=== PATIENT | female | born 1995 | race Caucasian/White ===

== ENCOUNTER 2018-04-16 09:01 | Inpatient (IN) | payer BC ==
[2018-04-16] MEDS ORDERED: Sodium Chloride 0.9% 10 ML Syringe FLUSH PRN (13:10)
[2018-04-16] MEDS ORDERED: Calcium Carbonate 500 MG Tab.Chew PO PRN (13:10)
[2018-04-16] MEDS ORDERED: Nalbuphine 20 MG/ML 1 ML Syringe IVPUSH PRN (13:10)
[2018-04-16] MEDS ORDERED: Lidocaine 1% 50 ML MDV INJECT ONE (13:10)
[2018-04-16] MEDS ORDERED: Ondansetron 4 MG/2 ML SDV IVPUSH PRN ×2 (13:10→13:22)
[2018-04-16] MEDS ORDERED: Oxytocin/Lactated Ringers 10 UNIT/1,000 ML BAG IV SCH ×2 (13:15→17:15)
[2018-04-16] MEDS ORDERED: Lactated Ringers 1,000 ML ONE (13:21)
[2018-04-16] MEDS ORDERED: ePHEDrine 50 MG/ML SDV IVPUSH PRN (13:22)
[2018-04-16] MEDS ORDERED: fentaNYL 100 MCG/2 ML SDV EPIDUR PRN (13:22)
[2018-04-16] MEDS ORDERED: diphenhydrAMINE 50 MG/ML SDV IVPUSH PRN (13:22)
--- NOTE | 2018-04-16 13:28 | PCM.PREANE ---
Preanesthetic Assessment - Procedure Proposed Procedure: CHARIS - Anesthesia/Transfusion/Family Hx Anesthesia History: Prior Anesthesia Without Reaction Family History of Anesthesia Reaction: No Transfusion History: No Prior Transfusion(s) - Review of Systems General: No Symptoms Pulmonary: No Symptoms Cardiovascular: No Symptoms Gastrointestinal: Other (GERD with ) Neurological: No Symptoms Other: Reports: None - Physical Assessment NPO Status Date: 04/16/18 NPO Status Time: 11:00 Pulse: 78 O2 Sat by Pulse Oximetry: 99 Respiratory Rate: 16 Blood Pressure: 115/74 Temperature: 36.3 C Height: 1.57 m Weight: 76.204 kg ASA Class: 2 Mental Status: Alert & Oriented x3 Airway Class: Mallampati = 1 Dentition: Reports: Normal Dentition Thyro-Mental Finger Breadths: 3 Mouth Opening Finger Breadths: 3 ROM/Head Extension: Full Lungs: Clear to Auscultation, Normal Respiratory Effort Cardiovascular: Regular Rate, Regular Rhythm - Allergies Allergies/Adverse Reactions: Allergies Allergy/AdvReac Type Severity Reaction Status Date / Time No Known Allergies Allergy Verified 02/11/15 23:41 - Blood Blood Available: No Product(s) Available: None - Anesthesia Plan Pre-Op Medication Ordered: None - Acknowledgements Anesthesia Type Planned: Epidural Pt an Appropriate Candidate for the Planned Anesthesia: Yes Alternatives and Risks of Anesthesia Discussed w Pt/Guardian: Yes Pt/Guardian Understands and Agrees with Anesthesia Plan: Yes PreAnesthesia Questionnaire - Past Health History Medical/Surgical History: Denies Medical/Surgical History - HOME MEDS Home Medications: Home Meds Ondansetron [Zofran ODT] 4 mg PO Q6H PRN #20 tab.dis 02/12/15 [Rx] oxyCODONE HCl/Acetaminophen [Percocet 5-325 mg Tablet] 1 - 2 each PO Q6HR PRN # 20 tablet 02/12/15 [Rx] - CURRENT (IN HOUSE) MEDS Current Meds: Current Medications Calcium Carbonate/Glycine (Tums) 1,000 mg PO Q2H PRN PRN Reason: Indigestion Lactated Ringer's (Ringers, Lactated) 1,000 mls @ 100 mls/hr IV ASDIRECTED CHRIS Oxytocin/Lactated Ringer's (Pitocin In Lr 10 Units/1,000 Ml) 10 unit in 1,000 mls @ 500 mls/hr IV .CONTINUOUS CHRIS Nalbuphine HCl (Nubain) 10 mg IVPUSH Q2H PRN PRN Reason: pain Ondansetron HCl (Zofran) 4 mg IVPUSH Q4H PRN PRN Reason: Nausea/Vomiting Sodium Chloride (Saline Flush) 10 ml FLUSH ASDIRECTED PRN PRN Reason: Keep Vein Open Discontinued Medications Lidocaine HCl (Xylocaine 1%) 20 ml INJECT ONETIME ONE Stop: 04/16/18 13:11
[2018-04-16] MEDS: Lactated Ringers 1,000 ML IV SCH ×4 (13:34→20:21)
[2018-04-16] MEDS: fentaNYL/Bupivacaine-NS 2 MCG/ML-0.125%/PF 100 ML Bag EP SCH ×2 (14:40→21:46)
--- NOTE | 2018-04-16 21:41 | HP ---
DATE OF ADMISSION: 04/16/2018 CHIEF COMPLAINT: Admission diagnosis was a 39 and 3/7th week intrauterine with an estimated due date of 04/20/2018, admitted for active labor with change in cervical dilation. HISTORY OF PRESENT ILLNESS: The patient is a 22-year-old, 1, para 0, white female, who is admitted with contractions every 3 minutes and cervical change from 1 cm to 2 cm up to 3 cm. She has an JAIRO of 04/20/2018, placing her at 39 and 3/7th weeks. Her JAIRO is determined by a certain last menstrual period starting on 07/09/2017, and supported by an ultrasound done on 11/29/2017. The patient had menarche at age 10. Cycles were roughly every month. Final JAIRO of 07/09/2017 is fairly certain. She has not had any abnormal Pap smears or STIs in the past. Course: The patient was seen earlier in . Our clinic again had seen her at 26 weeks and 6 days. She had a weight gain from a pregravid weight of 161 to 167 pounds. Her vital signs were stable throughout the course, and her fundal height growth was appropriate. I do not have records as to any care prior to 26 weeks. LABORATORY DATA: Laboratory testing in shows her blood to be O negative with a negative antibody screen. First hemoglobin was 12.5 g/dL and MCV was 87. She is rubella immune and RPR was nonreactive. Urine culture was negative. Hepatitis B surface antigen and HIV assays were both negative as were Chlamydia and gonorrhea. Second trimester labs showed hemoglobin of 12.4 and platelets of 228,000, and a diabetic screen that was normal at 109. Antibody screen was negative at that time, and the patient received RhoGAM. Her Group B strep screen was negative. Rh immunoglobulin was given on 02/09/2018. Allergies: None. CURRENT MEDICATIONS: 1. Zofran p.r.n. for nausea. 2. Acyclovir 400 mg p.o. q.8 hours for herpes prophylaxis. 3. vitamins daily. 4. Tylenol p.r.n. PAST MEDICAL HISTORY: History of genital herpes simplex virus, now on acyclovir prophylaxis. PAST SURGICAL HISTORY: 1. Cholecystectomy via laparoscopy on 03/09/2015. 2. Tonsillectomy in February 2014. IMMUNIZATIONS: 1. Flu vaccination on 01/18/2018. 2. RhoGAM administered on 02/09/2018. 3. Tdap given on 01/18/2018. FAMILY HISTORY: Maternal grandmother with [place]'s chorea. Autism in half-brother. Mother is alive and well as is father. No bleeding, clotting, , or anesthesia problems are noted in the family. SOCIAL HISTORY: The patient is single. She works at [employer]. She does not use any significant amounts of alcohol, drugs, or tobacco. Significant other is not involved in her case. REVIEW OF SYSTEMS: GENERAL: The patient has no major concerns. Baby has been active. She is in good spirits. SKIN: Negative. HEENT: Within normal limits per patient report. NECK: Within normal limits per patient report. BACK: Within normal limits per patient report. CARDIOVASCULAR: No chest pain or exercise intolerance. RESPIRATORY: No infectious symptoms or shortness of breath. BREASTS: Changes associated with . The patient plans to breast feed. GASTROINTESTINAL: Negative. GENITOURINARY: Changes associated with including increased fundal height. EXTREMITIES: Occasional edema, but generally fine. NEUROLOGICAL: Negative. PHYSICAL EXAMINATION: GENERAL: The patient is a well-developed, well-nourished, pleasant, and cheerful female, in no acute distress. SKIN: Warm and dry without lesions. HEENT: Within normal limits. NECK: Within normal limits. BACK: Within normal limits. PULMONARY: Lungs are clear with good breath sounds in all lung richardson. CARDIOVASCULAR: Shows regular rate and rhythm without murmurs. BREASTS: Deferred. It has been done previously, and found to be normal. ABDOMEN: Protuberant with with last fundal height of 38 cm, with baby in a vertex presentation and heart rate of 155. GENITALIA: Shows cervix as dilated above. EXTREMITIES: Grossly within normal limits. NEUROLOGICAL: Grossly within normal limits. ASSESSMENT: 1. A 39 and 3/7th week intrauterine , active labor, cervical change from 1 cm to 2 cm up to 3+ cm. 2. Group B Streptococcus is negative. 3. The patient plans to do an epidural in Labor and Delivery. 4. The patient plans to breast feed. 5. Tdap is up-to-date as is flu shot. The patient received acyclovir for herpes simplex virus history. 6. RhoGAM was administered on 02/09/2018. PLAN: 1. Anticipate normal spontaneous vaginal delivery. No concerns at this time about HSV as history is negative and no abnormality is noted on exam. 2. Epidural p.r.n. 3. Support decision. 4. Routine labor care. 5. RhoGAM as indicated by blood sample. MMODAL /[id number]
[2018-04-16] MEDS ORDERED: Bupivacaine 0.25% 10 ML SDV ONE (22:00)
[2018-04-16] MEDS ORDERED: Lidocaine 1.5% with EPINEPHrine 1:200,000 5 ML Amp ONE (22:00)
[2018-04-16] MEDS ORDERED: Acetaminophen 325 MG Tab PO ONE (23:23)
[2018-04-17] MEDS: Lactated Ringers 1,000 ML IV SCH (00:03)
--- NOTE | 2018-04-17 00:46 | PCM.SN ---
- Free Text/Narrative Note: Nilda is a 22-year-old 1 now para 1001 white female is admitted on 12/2018 in early active labor. Her JAIRO was 04/20/2018 place her at 39-4/7 weeks gestational age at the time of delivery. She had made cervical dilation progress. She progressed through labor to complete cervical dilation by late on 04/16/2018. She did become febrile with temperature up to 101.5. Tylenol was given. Because is very close the time of delivery decisions made not to give antibiotics at this time. Patient delivered a viable, haas, male infant named Tarik Oh at 0006 hours on 04/17/2018 in a right occiput anterior position. Nose and mouth were bulb suctioned baby was placed on mom's abdomen. Cord was allowed to pulsate 1 minute and then was clamped 2 and cut. scores were 7 and 9. Length was 20.0 inches and weight was 3720 g (8 pounds 3.2 ounces). Pitocin was increased IV to increase uterine tone and decreased likelihood of uterine bleeding. The patient had bilateral labia minora lacerations. These were repaired with both interrupted and short running sutures of 3-0 Monocryl. Epidural analgesia was used for laceration repair anesthesia. Patient tolerated this very well. No perineal laceration was noted. Superficial abrasions were noted in this area and in the by clitoral area. These were not anatomically distorted nor were they bleeding and were not sutured. Placenta delivered intact in a Bronson presentation, appeared intact and complete and was taken by the patient to be buried at home. She signed a consent excepting responsibility for this after discussions held her as to the potential risk associated with placenta especially in light of the patient that she was febrile. She did report she had no intentions to consume the placenta. Assessment blood loss was 100 mL. Patient plans to breast-feed. Condition: Good.
[2018-04-17] MEDS ORDERED: Docusate Sodium 100 MG Cap PO PRN (01:25)
[2018-04-17] MEDS ORDERED: Benzocaine/Menthol 20%-0.5% Spray 56 GM Canister TOP PRN (01:25)
[2018-04-17] MEDS ORDERED: Witch Hazel Medicated Pads 40/Jar TOP PRN (01:25)
[2018-04-17] MEDS ORDERED: Lanolin 100% Cream 7 GM Tube TOP PRN (01:25)
[2018-04-17] MEDS ORDERED: Acetaminophen 325 MG Tab PO PRN (01:25)
[2018-04-17] MEDS: Ibuprofen 600 MG Tab PO PRN ×3 (02:42→18:32)
--- NOTE | 2018-04-17 08:57 | PCM.SN ---
- Free Text/Narrative Note: note: Patient is doing well in the period. Minimal lochia, voiding well, ambulated without problems. Nursing without concerns. Patient is afebrile, vital signs are stable Abdomen is flat, soft, uterus is below the umbilicus and is firm and nontender. Legs are nontender. Assessment: recovery going well. Plan: Routine care. Patient be discharged home within the next 24-48 hours.
[2018-04-17] MEDS: Prenatal Multivitamin with Calcium/Folic Acid/Iron Tab PO SCH (10:15)
[2018-04-18] MEDS: Ibuprofen 600 MG Tab PO PRN (03:39)
--- NOTE | 2018-04-18 05:58 | PCM.SN ---
- Free Text/Narrative Note: note: Patient is doing well in the period. Minimal lochia, voiding well, ambulated without problems. Nursing without concerns. Baby is in because of patient's febrile episode. Patient is afebrile, vital signs are stable Abdomen is flat, soft, uterus is below the umbilicus and is firm and nontender. Legs are nontender. Assessment: Term day 1. recovery going well. Mom until tomorrow because baby will be in the hospital also. Plan: Routine care. Patient be discharged home within the next 24- 48 hours.
[2018-04-18] MEDS: Prenatal Multivitamin with Calcium/Folic Acid/Iron Tab PO SCH (09:09)
--- NOTE | 2018-04-19 05:27 | PCM.DCSUM1 ---
Discharge Summary - Hospital Course Free Text/Narrative:: Nilda is a 22-year-old 1 now para 1001 white female is admitted on 12/2018 in early active labor. Her JAIRO was 04/20/2018 place her at 39-4/7 weeks gestational age at the time of delivery. She had made cervical dilation progress. She progressed through labor to complete cervical dilation by late on 04/16/2018. She did become febrile with temperature up to 101.5. Tylenol was given. Because is very close the time of delivery decisions made not to give antibiotics at this time. Patient delivered a viable, haas, male infant named Tarik Oh at 0006 hours on 04/17/2018 in a right occiput anterior position. Nose and mouth were bulb suctioned baby was placed on mom's abdomen. Cord was allowed to pulsate 1 minute and then was clamped 2 and cut. scores were 7 and 9. Length was 20.0 inches and weight was 3720 g (8 pounds 3.2 ounces). Pitocin was increased IV to increase uterine tone and decreased likelihood of uterine bleeding. The patient had bilateral labia minora lacerations. These were repaired with both interrupted and short running sutures of 3-0 Monocryl. Epidural analgesia was used for laceration repair anesthesia. Patient tolerated this very well. No perineal laceration was noted. Superficial abrasions were noted in this area and in the by clitoral area. These were not anatomically distorted nor were they bleeding and were not sutured. Placenta delivered intact in a Bronson presentation, appeared intact and complete and was taken by the patient to be buried at home. She signed a consent excepting responsibility for this after discussions held her as to the potential risk associated with placenta especially in light of the patient that she was febrile. She did report she had no intentions to consume the placenta. Assessment blood loss was 100 mL. Patient plans to breast-feed. The patient's baby had to stay an extra day. This due to an elevated CRP. Babies on antibiotics. Patient is ready for discharge. She has minimal lochia, is breast-feeding well and is having. Condition: Good. Diagnosis: Stroke: No - Discharge Data Discharge Date: 04/19/18 Discharge Disposition: Home, Self-Care 01 Condition: Good - Patient Instructions Diet: Regular Diet as Tolerated (And diet was increased calories and calcium is recommended) Activity: As Tolerated (No intercourse or tampons until bleeding resolves) Driving: May Drive Today Showering/Bathing: May Shower (May take a bath) Notify Provider of: Fever, Increased Pain, Swelling and Redness, Nausea and/or Vomiting - Discharge Plan Home Medications: Home Meds Acyclovir 400 mg PO Q8HR 04/16/18 [History] Pnv No.122/Iron/Folic Acid [ Multi Tablet] 1 each PO DAILY 04/16/18 [ History] - Discharge Summary/Plan Comment DC Time >30 min.: Yes Discharge Summary/Plan Comment: Discharge instructions: 1. Discharge home 2. Diet, activity and follow-up discussed with patient. Recommend nursing diet with increased calories and calcium. 3. Precautions given concern increased pain, bleeding, temperature, signs/ symptoms of DVT/PE. 4. Medications per home medication was printed, discussed with and given to the patient. 5. Return to clinic-[facility]. [facility] in 3 weeks. Diagnosis: Term -delivered Condition: Good - Patient Data Vitals - Most Recent: Last Vital Signs Temp 36.7 C 04/18/18 20:21 Pulse 73 04/18/18 20:21 Resp 16 04/18/18 20:21 BP 114/62 04/18/18 20:21 Pulse Ox 97 04/18/18 20:21 Weight - Most Recent: 76.294 kg I&O - Last 24 hours: Intake & Output 04/18/18 04/18/18 04/19/18 14:59 22:59 06:59 Intake Total 240 Output Total 46 Balance 194 Lab Results - Last 24 hrs: Laboratory Results - last 24 hr 04/18/18 Range/Units 06:18 WBC 14.31 H (3.98-10.04) K/mm3 RBC 3.35 L (3.98-5.22) M/mm3 Hgb 9.5 L (11.2-15.7) gm/L Hct 29.6 L (34.1-44.9) % MCV 88.4 (79.4-94.8) fl MCH 28.4 (25.6-32.2) pg MCHC 32.1 L (32.2-35.5) g/dl RDW Std Deviation 48.1 H (36.4-46.3) fL Plt Count 196 (182-369) K/mm3 MPV 10.7 (9.4-12.3) fl Neut % (Auto) 64.8 (34.0-71.1) % Lymph % (Auto) 25.6 (19.3-51.7) % [place] % (Auto) 7.1 (4.7-12.5) % Eos % (Auto) 2.0 (0.7-5.8) Baso % (Auto) 0.2 (0.1-1.2) % Neut # (Auto) 9.28 H (1.56-6.13) K/mm3 Lymph # (Auto) 3.67 (1.18-3.74) K/mm3 [place] # (Auto) 1.01 H (0.24-0.36) K/mm3 Eos # (Auto) 0.28 (0.04-0.36) K/mm3 Baso # (Auto) 0.03 (0.01-0.08) K/mm3 Manual Slide Review Normal smear LEIDY Results - Last 24 hrs: Microbiology 04/17/18 00:30 Gram Stain - Final Other - Placenta, Unspecified Anaerobic Culture - Preliminary Med Orders - Current: Current Medications Acetaminophen (Tylenol) 650 mg PO Q4H PRN PRN Reason: mild pain or fever Last Admin: 04/18/18 09:10 Dose: 650 mg Benzocaine/Menthol (Dermoplast Pain Relief [place]) 0 gm TOP ASDIRECTED PRN PRN Reason: Perineal Comfort Measure Last Admin: 04/17/18 02:42 Dose: 1 can Docusate Sodium (Colace) 100 mg PO BID PRN PRN Reason: Constipation Emollient Ointment (Lansinoh Hpa) 0 gm TOP ASDIRECTED PRN PRN Reason: Sore Nipples Last Admin: 04/17/18 21:18 Dose: 1 applic Ibuprofen (Motrin) 600 mg PO Q4H PRN PRN Reason: Mild pain or fever Last Admin: 04/18/18 03:39 Dose: 600 mg Prenat Multivit/[place]/Iron/Folic Ac ( Plus Iron) 1 each PO DAILY CHRIS Last Admin: 04/18/18 09:09 Dose: Not Given Witch Angela (Tucks) 1 pad TOP ASDIRECTED PRN PRN Reason: Pain Last Admin: 04/17/18 02:42 Dose: 1 jar Discontinued Medications Acetaminophen (Tylenol) 650 mg PO NOW ONE Stop: 04/16/18 23:24 Last Admin: 04/16/18 23:31 Dose: 650 mg Bupivacaine HCl (Sensorcaine-Mpf 0.25%) 10 ml .ROUTE .STK-MED ONE Stop: 04/16/18 22:01 Calcium Carbonate/Glycine (Tums) 1,000 mg PO Q2H PRN PRN Reason: Indigestion Diphenhydramine HCl (Benadryl) 25 mg IVPUSH Q6H PRN PRN Reason: Pruritis Ephedrine Sulfate (Ephedrine Sulfate) 5 mg IVPUSH ASDIRECTED PRN PRN Reason: Hypotension Fentanyl (Sublimaze) 100 mcg EPIDUR Q3H PRN PRN Reason: Pain Last Admin: 04/16/18 14:40 Dose: 100 mcg Fentanyl/Bupivacaine HCl (Qnppapyd-Vbdab-Yu 2 Mcg/Ml-0.125%) 100 ml EP ASDIRECTED CHRIS Last Admin: 04/16/18 21:46 Dose: 100 ml Lactated Ringer's (Ringers, Lactated) 1,000 mls @ 100 mls/hr IV ASDIRECTED CHRIS Last Admin: 04/17/18 00:03 Dose: 999 mls/hr Oxytocin/Lactated Ringer's (Pitocin In Lr 10 Units/1,000 Ml) 10 unit in 1,000 mls @ 500 mls/hr IV .CONTINUOUS CHRIS Lactated Ringer's (Ringers, Lactated) Confirm Administered Dose 1,000 mls @ as directed .ROUTE .STK-MED ONE Stop: 04/16/18 13:22 Last Admin: 04/17/18 02:47 Dose: Not Given Oxytocin/Lactated Ringer's (Pitocin In Lr 10 Units/1,000 Ml) 10 unit in 1,000 mls @ 12 mls/hr IV TITRATE CHRIS; Protocol Last Titration: 04/16/18 19:02 Dose: 6 munits/min, 36 mls/hr Influenza Virus Vaccine (Pharmacy To Dose - Influenza Vaccine) 1 each IM ONETIME ONE Stop: 04/16/18 14:20 Influenza Virus Vaccine (Fluzone Quad [id number] Syringe) 60 mcg IM .ONCE ONE Stop: 04/16/18 14:31 Last Admin: 04/17/18 02:47 Dose: Not Given Lidocaine HCl (Xylocaine 1%) 20 ml INJECT ONETIME ONE Stop: 04/16/18 13:11 Last Admin: 04/17/18 02:46 Dose: Not Given Lidocaine/Epinephrine (Xylocaine-Mpf 1.5% W/Epinephrine 1:200,000) 5 ml .ROUTE .[facility] ONE Stop: 04/16/18 22:01 Nalbuphine HCl (Nubain) 10 mg IVPUSH Q2H PRN PRN Reason: pain Ondansetron HCl (Zofran) 4 mg IVPUSH Q4H PRN PRN Reason: Nausea/Vomiting Ondansetron HCl (Zofran) 4 mg IVPUSH ONETIME PRN PRN Reason: Nausea/Vomiting Sodium Chloride (Saline Flush) 10 ml FLUSH ASDIRECTED PRN PRN Reason: Keep Vein Open
[2018-04-19 18:07] VITALS: BP 108/63
== END 2018-04-19 17:40 | disposition home or self-care (01) | DRG 560 ==
LOC: JD.OBCHECK 09:01 → JD.OB 09:08 → JD.OBCHECK 13:11 → JD.OB 13:11 → OBSVTOIN 04-17 00:06 → JD.OB 04-17 00:07
PROVIDERS: ADMIT Obstetrics & Gynecology; ATTEND Obstetrics & Gynecology
PROC: 10E0XZZ Delivery of Products of Conception, External Approach (ICD-10-PCS; principal; 2018-04-17)
PROC: 0UQMXZZ Repair Vulva, External Approach (ICD-10-PCS; 2018-04-17)
PROC: 3E0R3BZ Introduction of Anesthetic Agent into Spinal Canal, Percutaneous Approach (ICD-10-PCS; 2018-04-17)
DX: O70.0 First degree perineal laceration during delivery (principal); Z3A.39 39 weeks gestation of pregnancy; Z37.0 Single live birth
CPT/HCPCS: 36415; 51701; 51702; 59025; 59409; 80306; 81001; 85025; 85027; 86592; 87075; 87205; A9270-GY; J2590; J2790; J3010; J3490; J7120